=== PATIENT | male | born 1995 | race Caucasian/White ===

== ENCOUNTER → 2017-09-08 | Outpatient (CLI) | payer OTHER ==
[~2017-09-08] MED LIST: EFF50 PO
== END | disposition home or self-care (01) ==
LOC: C.LAB 00:25
DX: Z02.83 Encounter for blood-alcohol and blood-drug test (principal)

== ENCOUNTER 2017-10-15 18:44 | Emergency (ER) | payer OTHER ==
[~2017-10-15] VITALS: Ht 193 cm; Wt 93.8 kg
[2017-10-15 19:14] VITALS: TEMP 36.7; Ht 193 cm; Wt 93.8 kg
[2017-10-15] MEDS ORDERED: DiphenhydrAMINE HCL 50 MG/ML VIAL IV STA (20:20)
[2017-10-15] MEDS ORDERED: METHYLPREDNISOLONE 125 MG VIAL IV STA (20:20)
[2017-10-15] MEDS ORDERED: EPINEPHRINE ADULT AUTO-INJECT 0.3 MG SYR IM STA (20:20)
[2017-10-15] MEDS ORDERED: SODIUM CHLORIDE 0.9% 1000ML 1,000 ML IV STA (20:20)
[2017-10-15] MEDS ORDERED: FAMOTIDINE 20MG/5ML IV PUSH IV STA (20:20)
[2017-10-15] MEDS ORDERED: ALBUTEROL 0.083% NEBU SOLN 3 ML VIAL INH STA (20:20)
[2017-10-15 20:26] VITALS: BP 116/70; PULSE 82; O2SAT 98
--- NOTE | 2017-10-15 23:05 | EMERGENCY ROOM VISIT NOTE ---
History Report prepared by Marquez: Reji Miller Under the Supervision of: Chacorta BrowningO. First contact with patient: 19:48 Chief Complaint: OTHER COMPLAINT Stated Complaint: COUGH, CONGESTION, VOMITING History of Present Illness The patient is a 22 year old male who presents to the Emergency Room with complaints of a persistent illness that started around 9 days ago. He states that he kept being sent home from work at [employer], so they wanted him to come here to get a work excuse. The patient says that he had been vomiting every other day, but he has not vomited today, and he has been eating and drinking fine today. He notes that he started having a runny nose and cough last night. He says that he is bringing up clear mucous. The patient denies any chest pain, shortness of breath, fevers, ear pain, abdominal pain, or pain or burning with urination. He still has all his major abdominal organs. Source of History: patient Onset: 9 days ago Position: other (global) Quality: other (illness) Timing: other (persistent) Associated Symptoms: + cough (and runny nose), + vomiting, No fevers, No chest pain, No SOB, No abdominal pain, No urinary symptoms Note: Denies ear pain. Review of Systems See HPI for pertinent positives & negatives. A total of 10 systems reviewed and were otherwise negative. Past Medical & Surgical Medical Problems: (1) No chronic diseases present Family History No pertinent family history Social History Smoking Status: Current Every Day Smoker Housing Status: lives with family Occupation Status: employed Current/Historical Medications Scheduled Venlafaxine Hcl (Effexor *), 75 MG PO DAILY Allergies Coded Allergies: No Known Allergies (Unverified , 11/13/09) Physical Exam Vital Signs Date Time Temp Pulse Resp B/P (MAP) Pulse Ox O2 Delivery O2 Flow Rate FiO2 10/15/17 20:26 82 20 116/70 98 10/15/17 19:14 36.7 98 18 152/97 98 Room Air Physical Exam GENERAL: Sitting up in bed, alert, well appearing, well nourished, no distress, non-toxic EYE EXAM: normal conjunctiva. OROPHARYNX: no exudate, no erythema, lips, buccal mucosa, and tongue normal and mucous membranes are moist NECK: supple, no nuchal rigidity, no adenopathy, non-tender LUNGS: Clear to auscultation. Normal chest wall mechanics HEART: no murmurs, S1 normal and S2 normal ABDOMEN: abdomen soft, non-tender, normo-active bowel sounds, no masses, no rebound or guarding. BACK: Back is symmetrical on inspection and there is no deformity, no midline tenderness, no CVA tenderness. SKIN: no rashes and no bruising UPPER EXTREMITIES: upper extremities are grossly normal. LOWER EXTREMITIES: No pitting edema. NEURO EXAM: Normal sensorium, cranial nerves II-XII grossly intact, normal speech, no gross weakness of arms, no gross weakness of legs. Medical Decision & Procedures ED Course ED COURSE: Vital signs were reviewed and showed normal vitals. The patients medical record was reviewed The above diagnostic studies were performed and reviewed. ED treatments and interventions as stated above. 1950: The patient was evaluated in room A2. A complete history and physical examination was performed. I discussed my findings with the patient and he understands and agrees with the treatment plan. Based on the patients age, coexisting illnesses, exam and lab findings the decision to treat as an outpatient was made. The patient remained stable while under my care. The patient appeared well at the time of discharge. Medical Decision Differential diagnoses includes but is not limited to pneumonia, bronchitis, COPD/Asthma exacerbation, pneumothorax, pulmonary embolism, congestive heart failure, acute coronary syndrome. Patient is a 22-year-old male who presents the ER for cough associated with a runny nose. He does note that the past several days he has been vomiting but that completely resolved today. He has been eating and drinking normally. He had 2 sausages just prior to arrival. Abdominal exam is benign. He notes he presented as he needs a work excuse. Both him and his significant other declined blood work. I do feel this is reasonable. Lungs were clear. Complete benign exam. Patient has the likely early start of a viral URI. Discussed with Pt concerning signs and symptoms to watch out for. Pt was instructed to follow up with their PCP and discussed with the patient their option to return to the ED at anytime for persistent or worsening symptoms. The appropriate anticipatory guidance and out-patient management, including indications for return to the emergency department, were explained at length to the patient and understood. Medication Reconcilliation Current Medication List: was personally reviewed by me Blood Pressure Screening Patient's blood pressure: Normal blood pressure Impression Primary Impression: URI (upper respiratory infection) Scribe Attestation The scribe's documentation has been prepared under my direction and personally reviewed by me in its entirety. I confirm that the note above accurately reflects all work, treatment, procedures, and medical decision making performed by me. Departure Information Dispostion Home / Self-Care Referrals No Doctor, Assigned (PCP) Patient Instructions ED URI Viral, My [facility] Additional Instructions Please follow up with your primary care doctor with in the next 24 hours. Any worsening of your symptoms, please return to the ED immediately. This includes any fevers greater than 100.4, worsening pain, chest pain, shortness breath, persistent nausea, vomiting, unable to eat or drink, or any other concerning signs or symptoms from your standpoint. Problem Qualifiers Primary Impression: URI (upper respiratory infection) URI type: unspecified URI Qualified Codes: J06.9 - Acute upper respiratory infection, unspecified
== END 2017-10-15 20:27 | disposition home or self-care (01) ==
LOC: C.EDB 18:46 → C.EDA 20:27
DX: J06.9 Acute upper respiratory infection, unspecified (principal); F17.210 Nicotine dependence, cigarettes, uncomplicated; Z79.899 Other long term (current) drug therapy

== ENCOUNTER → 2017-11-26 | Outpatient (CLI) | payer OTHER | END | disposition home or self-care (01) | LOC: C.LAB 23:56 | DX: Z02.83 Encounter for blood-alcohol and blood-drug test (principal) ==